=== PATIENT | male | born 1965 | race Caucasian/White ===

== ENCOUNTER 2017-08-13 19:38 | Inpatient (IN) | payer OTHER ==
[~2017-08-13] VITALS: Ht 188 cm; Wt 182.9 kg
[2017-08-13 20:30] LABS: BASOPHILS # (AUTO) 0.01 x10^3/uL (0-0.1); BASOPHILS % (AUTO) 0 % (0-1); EOSINOPHILS # (AUTO) 0.16 x10^3/uL (0-0.4); EOSINOPHILS % (AUTO) 2 % (1-7); LYMPHOCYTES # (AUTO) 1.33 x10^3/uL (1-3.4); LYMPHOCYTES % (AUTO) 12 % (22-44); MD NO; MEAN CORPUSCULAR HEMOGLOBIN 35.2 pg (27.5-34.5); MEAN CORPUSCULAR HGB CONC 33.9 g/dL (33.2-36.2); MEAN CORPUSCULAR VOLUME 103.9 fL (81-97); MEAN PLATELET VOLUME 8.3 fL (7.4-10.4); MONOCYTES # (AUTO) 0.47 x10^3/uL (0.2-0.8); MONOCYTES % (AUTO) 4 % (2-9); NEUTROPHILS # (AUTO) 9.04 x10^3/uL (1.8-6.8); NEUTROPHILS % (AUTO) 82 % (42-75); PLATELET COUNT 289 x10^3/uL (130-400); RED BLOOD COUNT 4.59 x10^6/uL (4.38-5.82); RED CELL DISTRIBUTION WIDTH 12.8 % (9.4-14.8)
[2017-08-13] MEDS ORDERED: SODIUM CHLORIDE FLUSH 10ML SYR IVF ONE (20:30)
[2017-08-13 20:42] LABS: ALANINE AMINOTRANSFERASE 35 U/L (12-78); ALBUMIN 4.1 g/dL (3.4-5.0); ANION GAP 10 mmol/L (5-15); CALCIUM 8.8 mg/dL (8.5-10.1); CHLORIDE 95 mmol/L (98-107)
[2017-08-13 20:44] LABS: ALKALINE PHOSPHATASE 60 U/L (45-117); BILIRUBIN,TOTAL 0.9 mg/dL (0.2-1.0); TOTAL PROTEIN 8.3 g/dL (6.4-8.2)
[2017-08-13] MEDS ORDERED: KETOROLAC 30 MG/1 ML ONE (21:26)
[2017-08-13] MEDS ORDERED: OXYcodone IR 5MG TABLET ONE ×2 (21:26→21:31)
[2017-08-13 21:29] LABS: CULTURE INDICATED? NO; MICROSCOPIC NOT IND
[2017-08-13] MEDS ORDERED: KETOROLAC 30 MG/1 ML IM ONE (21:30)
[2017-08-13] MEDS ORDERED: OXYcodone IR 5MG TABLET PO PRN (21:30)
[2017-08-13] MEDS: SODIUM CHLORIDE 0.9% 1,000 ML IV SCH (22:58)
[2017-08-13] MEDS ORDERED: VANCOMYCIN PER PHARMACY MC PRN (23:00)
[2017-08-13] MEDS ORDERED: AMPICILLIN/SULBACTAM 3 GM in SODIUM CHLORIDE 0.9% 100 ML IV ONE (23:00)
[2017-08-13] MEDS ORDERED: BISACODYL 10 MG SUPP PR PRN (23:00)
[2017-08-13] MEDS ORDERED: POLYETHYLENE GLYCOL 17 GM PACKET PO PRN (23:00)
[2017-08-13] MEDS ORDERED: ONDANSETRON 2MG/ML, 2ML IVPush PRN (23:00)
[2017-08-13] MEDS ORDERED: PHARMACOKINETIC MONITORING MC PRN (23:45)
[2017-08-13 23:46] LABS: FOLATE LEVEL > 20.0 ng/mL (3.1-17.5)
[2017-08-14 00:07] LABS: HEMOGLOBIN A1C 4.9 % (4.2-6.3)
[2017-08-14] MEDS: HEPARIN 5,000 UNITS/ML, 1ML SQ SCH ×4 (00:25→23:19)
[2017-08-14] MEDS: INSULIN ASPART 100 UNITS/ML, PEN SQ-INSULIN SCH ×5 (00:30→20:16)
[2017-08-14 00:36] VITALS: BP_SYST 146; BP_SYST 150; BP_DIAS 84; BP_DIAS 92
[2017-08-14 00:51] VITALS: BP_SYST 146; BP_SYST 150; BP_DIAS 84; BP_DIAS 92
[2017-08-14] MEDS: PIPERACILLIN/TAZO/PMX 3.375GM 50 ML IV SCH ×4 (01:46→19:42)
[2017-08-14] MEDS: KETOROLAC 30 MG/1 ML IVPush PRN ×4 (01:59→23:56)
[2017-08-14] MEDS: VANCOMYCIN 2,000 MG in SODIUM CHLORIDE 0.9% 500 ML IV SCH ×2 (03:36→15:15)
[2017-08-14 05:39] LABS: BASOPHILS # (AUTO) 0.03 x10^3/uL (0-0.1); BASOPHILS % (AUTO) 0 % (0-1); EOSINOPHILS # (AUTO) 0.31 x10^3/uL (0-0.4); EOSINOPHILS % (AUTO) 3 % (1-7); LYMPHOCYTES % (AUTO) 24 % (22-44); MD NO; MEAN PLATELET VOLUME 8.6 fL (7.4-10.4); MONOCYTES # (AUTO) 0.75 x10^3/uL (0.2-0.8); MONOCYTES % (AUTO) 8 % (2-9); NEUTROPHILS # (AUTO) 6.06 x10^3/uL (1.8-6.8); NEUTROPHILS % (AUTO) 64 % (42-75); PLATELET COUNT 208 x10^3/uL (130-400); RED BLOOD COUNT 3.82 x10^6/uL (4.38-5.82); RED CELL DISTRIBUTION WIDTH 12.4 % (9.4-14.8)
[2017-08-14 05:41] LABS: CHLORIDE 96 mmol/L (98-107)
[2017-08-14 05:53] LABS: ALANINE AMINOTRANSFERASE 25 U/L (12-78); ALBUMIN 3.3 g/dL (3.4-5.0); ALKALINE PHOSPHATASE 48 U/L (45-117); ANION GAP 9 mmol/L (5-15); BILIRUBIN,TOTAL 0.8 mg/dL (0.2-1.0); CALCIUM 8.2 mg/dL (8.5-10.1); CREATININE 1.02 mg/dL (0.7-1.3); TOTAL PROTEIN 6.5 g/dL (6.4-8.2)
[2017-08-14] MEDS: SENNA/DOCUSATE TABLET PO SCH (08:02)
[2017-08-14 08:10] VITALS: BP 143/88
[2017-08-14] MEDS: SODIUM CHLORIDE 0.9% 1,000 ML IV SCH (12:28)
[2017-08-14 14:17] VITALS: BP 133/84
[2017-08-14 18:52] VITALS: BP 141/88
[2017-08-15 01:10] VITALS: BP 155/97
[2017-08-15] MEDS: SODIUM CHLORIDE 0.9% 1,000 ML IV SCH ×3 (01:42→20:06)
[2017-08-15] MEDS: PIPERACILLIN/TAZO/PMX 3.375GM 50 ML IV SCH ×4 (01:42→19:48)
[2017-08-15] MEDS: VANCOMYCIN 2,000 MG in SODIUM CHLORIDE 0.9% 500 ML IV SCH ×2 (03:08→15:00)
[2017-08-15 05:00] LABS: CHLORIDE 102 mmol/L (98-107)
[2017-08-15 05:01] LABS: BASOPHILS # (AUTO) 0.02 x10^3/uL (0-0.1); BASOPHILS % (AUTO) 0 % (0-1); EOSINOPHILS % (AUTO) 3 % (1-7); LYMPHOCYTES # (AUTO) 1.63 x10^3/uL (1-3.4); LYMPHOCYTES % (AUTO) 23 % (22-44); MD NO; MEAN CORPUSCULAR HEMOGLOBIN 35.4 pg (27.5-34.5); MEAN CORPUSCULAR HGB CONC 34.7 g/dL (33.2-36.2); MEAN CORPUSCULAR VOLUME 102.2 fL (81-97); MEAN PLATELET VOLUME 8.3 fL (7.4-10.4); MONOCYTES # (AUTO) 0.48 x10^3/uL (0.2-0.8); MONOCYTES % (AUTO) 7 % (2-9); NEUTROPHILS # (AUTO) 4.66 x10^3/uL (1.8-6.8); NEUTROPHILS % (AUTO) 67 % (42-75); PLATELET COUNT 180 x10^3/uL (130-400); RED BLOOD COUNT 3.81 x10^6/uL (4.38-5.82); RED CELL DISTRIBUTION WIDTH 12.6 % (9.4-14.8)
[2017-08-15 05:06] LABS: ANION GAP 8 mmol/L (5-15); CALCIUM 8.3 mg/dL (8.5-10.1); CREATININE 1.05 mg/dL (0.7-1.3)
[2017-08-15] MEDS: INSULIN ASPART 100 UNITS/ML, PEN SQ-INSULIN SCH ×4 (07:00→20:06)
[2017-08-15] MEDS: HEPARIN 5,000 UNITS/ML, 1ML SQ SCH ×3 (07:25→23:01)
[2017-08-15] MEDS: SENNA/DOCUSATE TABLET PO SCH (07:25)
[2017-08-15 07:54] VITALS: BP 164/73
[2017-08-15 10:50] VITALS: BP 153/91
[2017-08-15] MEDS: KETOROLAC 30 MG/1 ML IVPush PRN ×2 (11:03→17:10)
[2017-08-15] MEDS: LOSARTAN 50MG TABLET PO SCH (11:03)
[2017-08-15 13:35] VITALS: BP 137/89
[2017-08-15] MEDS: ACETAMINOPHEN 325 MG TABLET PO PRN ×2 (13:41→20:07)
[2017-08-15] MEDS ORDERED: COLC0.6T47 PO (18:00)
[2017-08-15] MEDS ORDERED: GLIP5TAB10 PO (18:00)
[2017-08-15] MEDS ORDERED: POTA20PA PO (18:00)
[2017-08-15] MEDS ORDERED: DICL75TA2 PO (18:00)
[2017-08-15] MEDS ORDERED: FURO40TA6 PO (18:00)
[2017-08-15] MEDS ORDERED: METF10002 PO (18:00)
[2017-08-15] MEDS ORDERED: CHOL10002 PO (18:00)
[2017-08-15] MEDS ORDERED: ASCO100019 PO (18:00)
[2017-08-15] MEDS ORDERED: GARL10002 PO (18:00)
[2017-08-15] MEDS ORDERED: LOVA40TA2 PO (18:00)
[2017-08-15] MEDS ORDERED: MULT-252 PO (18:00)
[2017-08-15] MEDS ORDERED: LISI40TA PO (18:00)
[2017-08-15 19:52] VITALS: BP 135/89
[2017-08-16] MEDS: KETOROLAC 30 MG/1 ML IVPush PRN ×4 (00:25→23:39)
[2017-08-16 01:27] VITALS: BP 135/77
[2017-08-16] MEDS: PIPERACILLIN/TAZO/PMX 3.375GM 50 ML IV SCH ×4 (02:26→20:57)
[2017-08-16] MEDS: VANCOMYCIN 2,000 MG in SODIUM CHLORIDE 0.9% 500 ML IV SCH (03:23)
[2017-08-16] MEDS: INSULIN ASPART 100 UNITS/ML, PEN SQ-INSULIN SCH ×4 (07:00→20:58)
[2017-08-16] MEDS: SENNA/DOCUSATE TABLET PO SCH (07:40)
[2017-08-16 07:41] VITALS: BP 129/80
[2017-08-16] MEDS: HEPARIN 5,000 UNITS/ML, 1ML SQ SCH ×3 (07:45→23:39)
[2017-08-16] MEDS: LOSARTAN 50MG TABLET PO SCH (07:45)
[2017-08-16] MEDS: ACETAMINOPHEN 325 MG TABLET PO PRN (12:09)
[2017-08-16 15:21] VITALS: BP 143/88
[2017-08-16] MEDS: HYDROcodone/APAP 5/325 TABLET PO PRN ×2 (17:19→20:57)
[2017-08-16] MEDS ORDERED: ICN morphine 0.1 MG/ML IV IV PRN (17:30)
[2017-08-16 19:54] VITALS: BP 139/85
[2017-08-16] MEDS ORDERED: OMNIPAQUE 350 MG/ML, 150 ML BOTTLE ONE (22:09)
[2017-08-17 01:54] VITALS: BP 173/105
[2017-08-17] MEDS: PIPERACILLIN/TAZO/PMX 3.375GM 50 ML IV SCH ×4 (02:09→20:00)
[2017-08-17] MEDS: HYDROcodone/APAP 5/325 TABLET PO PRN ×5 (02:09→23:57)
[2017-08-17] MEDS: VANCOMYCIN 2,000 MG in SODIUM CHLORIDE 0.9% 500 ML IV SCH (03:12)
[2017-08-17 05:46] LABS: BASOPHILS # (AUTO) 0.03 x10^3/uL (0-0.1); BASOPHILS % (AUTO) 0 % (0-1); EOSINOPHILS # (AUTO) 0.22 x10^3/uL (0-0.4); EOSINOPHILS % (AUTO) 3 % (1-7); LYMPHOCYTES # (AUTO) 1.42 x10^3/uL (1-3.4); LYMPHOCYTES % (AUTO) 21 % (22-44); MD NO; MEAN CORPUSCULAR HEMOGLOBIN 36.4 pg (27.5-34.5); MEAN PLATELET VOLUME 8.9 fL (7.4-10.4); MONOCYTES # (AUTO) 0.53 x10^3/uL (0.2-0.8); MONOCYTES % (AUTO) 8 % (2-9); NEUTROPHILS # (AUTO) 4.47 x10^3/uL (1.8-6.8); NEUTROPHILS % (AUTO) 67 % (42-75); PLATELET COUNT 160 x10^3/uL (130-400); RED BLOOD COUNT 3.53 x10^6/uL (4.38-5.82); RED CELL DISTRIBUTION WIDTH 12.6 % (9.4-14.8)
[2017-08-17 06:01] LABS: ALBUMIN 3.1 g/dL (3.4-5.0); ANION GAP 9 mmol/L (5-15); CALCIUM 8.2 mg/dL (8.5-10.1); CHLORIDE 103 mmol/L (98-107)
[2017-08-17 06:05] LABS: ALANINE AMINOTRANSFERASE 23 U/L (12-78); ALKALINE PHOSPHATASE 42 U/L (45-117); BILIRUBIN,TOTAL 0.8 mg/dL (0.2-1.0); CREATININE 0.96 mg/dL (0.7-1.3); TOTAL PROTEIN 6.3 g/dL (6.4-8.2)
[2017-08-17 06:43] VITALS: BP 118/76
[2017-08-17] MEDS: HEPARIN 5,000 UNITS/ML, 1ML SQ SCH ×3 (09:44→23:52)
[2017-08-17] MEDS: SENNA/DOCUSATE TABLET PO SCH (09:45)
[2017-08-17] MEDS: INSULIN ASPART 100 UNITS/ML, PEN SQ-INSULIN SCH ×4 (09:45→20:00)
[2017-08-17] MEDS: LOSARTAN 50MG TABLET PO SCH (09:45)
[2017-08-17 13:23] VITALS: BP 168/94
[2017-08-17 20:07] VITALS: BP 157/101
[2017-08-17 21:27] VITALS: BP 161/99
[2017-08-18 01:31] VITALS: BP 141/91
[2017-08-18] MEDS: PIPERACILLIN/TAZO/PMX 3.375GM 50 ML IV SCH ×4 (02:09→23:51)
[2017-08-18] MEDS: VANCOMYCIN 2,000 MG in SODIUM CHLORIDE 0.9% 500 ML IV SCH (03:07)
[2017-08-18] MEDS: INSULIN ASPART 100 UNITS/ML, PEN SQ-INSULIN SCH ×4 (07:29→20:57)
[2017-08-18 08:30] VITALS: BP 148/85
[2017-08-18] MEDS: HEPARIN 5,000 UNITS/ML, 1ML SQ SCH ×3 (08:58→23:52)
[2017-08-18] MEDS: LOSARTAN 50MG TABLET PO SCH (08:59)
[2017-08-18] MEDS: SENNA/DOCUSATE TABLET PO SCH (08:59)
[2017-08-18] MEDS: HYDROcodone/APAP 5/325 TABLET PO PRN ×4 (09:02→22:19)
[2017-08-18] MEDS: LINEZOLID 600 MG TABLET PO SCH ×2 (12:29→20:53)
[2017-08-18 14:30] VITALS: BP 147/90
[2017-08-18 19:20] VITALS: BP 131/82
[2017-08-19 03:06] VITALS: BP 150/84
[2017-08-19] MEDS: HYDROcodone/APAP 5/325 TABLET PO PRN ×4 (04:10→22:19)
[2017-08-19] MEDS: PIPERACILLIN/TAZO/PMX 3.375GM 50 ML IV SCH ×4 (04:50→23:24)
[2017-08-19] MEDS: INSULIN ASPART 100 UNITS/ML, PEN SQ-INSULIN SCH ×4 (07:00→21:00)
[2017-08-19 07:47] VITALS: BP 154/99
[2017-08-19] MEDS: LOSARTAN 50MG TABLET PO SCH (08:12)
[2017-08-19] MEDS: LINEZOLID 600 MG TABLET PO SCH ×2 (08:12→20:58)
[2017-08-19] MEDS: SENNA/DOCUSATE TABLET PO SCH (08:12)
[2017-08-19] MEDS: HEPARIN 5,000 UNITS/ML, 1ML SQ SCH ×3 (08:13→22:19)
[2017-08-19 11:21] LABS: ANION GAP 9 mmol/L (5-15); CALCIUM 8.3 mg/dL (8.5-10.1); CHLORIDE 103 mmol/L (98-107); CREATININE 0.93 mg/dL (0.7-1.3)
[2017-08-19 12:33] VITALS: BP 151/90
[2017-08-19] MEDS: MORPHINE SULFATE 4 MG/ML, 1ML IVPush PRN (12:48)
[2017-08-19 19:43] VITALS: BP 156/95
[2017-08-20 00:32] VITALS: BP 137/82
[2017-08-20] MEDS: MORPHINE SULFATE 4 MG/ML, 1ML IVPush PRN ×2 (02:25→16:13)
[2017-08-20] MEDS: PIPERACILLIN/TAZO/PMX 3.375GM 50 ML IV SCH ×3 (05:05→17:16)
[2017-08-20 07:09] VITALS: BP 137/89
[2017-08-20] MEDS: HEPARIN 5,000 UNITS/ML, 1ML SQ SCH ×2 (08:32→16:01)
[2017-08-20] MEDS: LINEZOLID 600 MG TABLET PO SCH ×2 (08:32→20:19)
[2017-08-20] MEDS: INSULIN ASPART 100 UNITS/ML, PEN SQ-INSULIN SCH ×4 (08:32→20:16)
[2017-08-20] MEDS: LOSARTAN 50MG TABLET PO SCH (08:32)
[2017-08-20] MEDS: SENNA/DOCUSATE TABLET PO SCH (08:33)
[2017-08-20] MEDS: HYDROcodone/APAP 5/325 TABLET PO PRN ×3 (08:39→20:19)
[2017-08-20 12:39] VITALS: BP 144/79
[2017-08-20 19:47] VITALS: BP_SYST 157; BP_SYST 161; BP_DIAS 100; BP_DIAS 98
[2017-08-21] MEDS: HEPARIN 5,000 UNITS/ML, 1ML SQ SCH ×3 (00:36→17:11)
[2017-08-21] MEDS: PIPERACILLIN/TAZO/PMX 3.375GM 50 ML IV SCH ×4 (00:36→17:55)
[2017-08-21] MEDS: HYDROcodone/APAP 5/325 TABLET PO PRN ×4 (00:40→21:26)
[2017-08-21 01:18] VITALS: BP 140/88
[2017-08-21 05:01] LABS: BASOPHILS # (AUTO) 0.03 x10^3/uL (0-0.1); BASOPHILS % (AUTO) 0 % (0-1); EOSINOPHILS # (AUTO) 0.34 x10^3/uL (0-0.4); EOSINOPHILS % (AUTO) 5 % (1-7); LYMPHOCYTES % (AUTO) 20 % (22-44); MD NO; MEAN CORPUSCULAR VOLUME 103.1 fL (81-97); MEAN PLATELET VOLUME 8.5 fL (7.4-10.4); MONOCYTES % (AUTO) 9 % (2-9); NEUTROPHILS # (AUTO) 4.94 x10^3/uL (1.8-6.8); NEUTROPHILS % (AUTO) 66 % (42-75); PLATELET COUNT 209 x10^3/uL (130-400); RED BLOOD COUNT 3.59 x10^6/uL (4.38-5.82); RED CELL DISTRIBUTION WIDTH 12.5 % (9.4-14.8)
[2017-08-21 05:10] LABS: CHLORIDE 102 mmol/L (98-107)
[2017-08-21 05:15] LABS: ANION GAP 9 mmol/L (5-15); CALCIUM 8.6 mg/dL (8.5-10.1); CREATININE 0.95 mg/dL (0.7-1.3)
[2017-08-21 06:28] VITALS: BP 168/105
[2017-08-21] MEDS: LOSARTAN 50MG TABLET PO SCH (09:03)
[2017-08-21] MEDS: LINEZOLID 600 MG TABLET PO SCH ×2 (09:03→21:26)
[2017-08-21] MEDS: INSULIN ASPART 100 UNITS/ML, PEN SQ-INSULIN SCH ×2 (09:04→12:11)
[2017-08-21] MEDS: SENNA/DOCUSATE TABLET PO SCH (09:05)
[2017-08-21 10:03] VITALS: BP 167/85
[2017-08-21] MEDS: MORPHINE SULFATE 4 MG/ML, 1ML IVPush PRN (12:10)
[2017-08-21 13:10] VITALS: BP 159/93
[2017-08-21] MEDS: INSULIN LISPRO 100 UNITS/ML, PEN SQ-INSULIN SCH ×2 (17:37→21:00)
[2017-08-21 18:33] VITALS: BP 144/84
[2017-08-22] MEDS: PIPERACILLIN/TAZO/PMX 3.375GM 50 ML IV SCH ×4 (00:27→17:56)
[2017-08-22 03:04] VITALS: BP 160/99
[2017-08-22] MEDS: HYDROcodone/APAP 5/325 TABLET PO PRN ×3 (05:12→19:22)
[2017-08-22] MEDS: INSULIN ASPART 100 UNITS/ML, PEN SQ-INSULIN SCH ×3 (07:00→17:08)
[2017-08-22 07:30] VITALS: BP 133/86
[2017-08-22] MEDS: HEPARIN 5,000 UNITS/ML, 1ML SQ SCH ×3 (08:00→16:00)
[2017-08-22] MEDS: SENNA/DOCUSATE TABLET PO SCH (08:55)
[2017-08-22] MEDS: LINEZOLID 600 MG TABLET PO SCH (09:00)
[2017-08-22] MEDS: LOSARTAN 50MG TABLET PO SCH (09:00)
[2017-08-22] MEDS ORDERED: methylPREDNISolone 4mg DOSE PACK PO SCH (12:00)
[2017-08-22] MEDS ORDERED: CHOLECALCIFEROL 1,000 UNIT TABLET PO SCH (12:00)
[2017-08-22] MEDS ORDERED: methylPREDNISolone 4mg DOSE PACK PO ONE (12:00)
[2017-08-22] MEDS: METHOCARBAMOL 750 MG TABLET PO SCH ×2 (12:50→17:08)
[2017-08-22] MEDS: GABAPENTIN 300 MG CAPSULE PO SCH ×2 (12:50→17:08)
[2017-08-22] MEDS: MORPHINE SULFATE 4 MG/ML, 1ML IVPush PRN ×2 (13:04→17:08)
[2017-08-22 13:34] VITALS: BP 159/99
[2017-08-22] MEDS ORDERED: CEFD300C37 PO (16:39)
[2017-08-22] MEDS ORDERED: LINE600T7 PO (16:39)
[2017-08-22] MEDS ORDERED: ACET325T14 PO (16:39)
[2017-08-22] MEDS ORDERED: IBUP-1484 PO (16:39)
[2017-08-22] MEDS ORDERED: METH4TAB2 PO (16:39)
[2017-08-22] MEDS ORDERED: CHOL10003 PO (16:39)
[2017-08-22] MEDS ORDERED: GABA300C10 PO (16:39)
[2017-08-22] MEDS ORDERED: LACT1CAP35 PO (16:39)
[2017-08-22] MEDS ORDERED: METH750T2 PO (16:39)
== END 2017-08-22 20:30 | disposition home or self-care (01) | DRG 871 ==
LOC: ED 22:48 → EDIP 22:59 → 3NE 23:39
PROVIDERS: ADMIT Internal Medicine; ATTEND Internal Medicine
DX: A41.9 Sepsis, unspecified organism (principal); K68.12 Psoas muscle abscess; E87.1 Hypo-osmolality and hyponatremia; E66.01 Morbid (severe) obesity due to excess calories; D75.89 Other specified diseases of blood and blood-forming organs; E11.9 Type 2 diabetes mellitus without complications; Z68.43 Body mass index [BMI] 50.0-59.9, adult; E78.5 Hyperlipidemia, unspecified; F12.90 Cannabis use, unspecified, uncomplicated; G89.29 Other chronic pain; M54.9 Dorsalgia, unspecified; I10 Essential (primary) hypertension; M48.061 Spinal stenosis, lumbar region without neurogenic claudication; Z90.5 Acquired absence of kidney
CPT/HCPCS: 36415; 72157; 72158; 74176; 74177; 80048; 80053; 80202; 81003; 82607; 82746; 82962; 83036; 83690; 83735; 85025; 87040; 96365; J0295; J1644; J1815; J1885; J2543; J3370; J7509; Q9967; J7030; J7040